=== PATIENT | female | born 1935 | race Caucasian/White ===

== ENCOUNTER → 2017-06-05 | Outpatient (CLI) | payer MEDICARE, BC ==
[~2017-06-05] MED LIST: ASPIRIN 81MG TA81 MG PO; BYSTOLIC20 MG PO; DIAZEPAM5 MG PO; ELITE MAGNESIUM1 TAB PO; LISINOPRIL 5MG T5 MG PO; LORTAB 5/500 501 TAB PO; MOTRIN600 MG PO; MULTIVITAMIN1 TA1 PO; NORVASC 10MG. T10 MG PO; POTASSIUM CHLO10 ME3 PO; POTASSIUM CHLO20 ME2 PO; PREDNISONE50 MG PO; SYNTHROID PO; TOPROL XL 25MG25 MG PO; VITAMIN D3400 I1 PO
[2017-06-05 09:31] LABS: HEMOGLOBIN 14.9 g/dL (12.2-16.2); LYMPH # 1.3 K/mm3 (0.7-4.5); LYMPH % 21.9 % (10-50.0)
[2017-06-05 11:13] LABS: BUN 25 mg/dL (7-18); GFR (ESTIMATED) 40 ML/MIN (59-)
--- NOTE | 2017-06-08 12:55 | RADIOLOGY REPORT PS360 ---
DIG MAMM-SCREEN ALISON W/CAD CAD Screening ORDERING PHYSICIAN : Justin Partida MD PATIENT AGE: 81 years GENDER: Female COMPARISON: Previous mammograms: May 20152015. April 2014. March INDICATION: Routine screening no hormones. No new complaints. Noncontributory family history TECHNIQUE: Standard CC and MLO images were obtained. R2 CAD reviewed. FINDINGS: Low-density breast bilaterally with generalized fatty replacement. No significant new findings. No new areas of concern. RIGHT BREAST: Stable. Follow-up one year LEFT BREAST: Stable small intramammary node deep axillary tail left breast stable since 1999 IMPRESSION: Negative/ Stable bilateral mammogram Low-density breast bilaterally. BI-RADS CATEGORY: 1 RECOMMENDED FOLLOWUP: 12M 12 MONTH FOLLOW-UP (A letter has been sent to the patient regarding results of the study.)
== END ==
LOC: RAD 09:08
PROVIDERS: Family Medicine
DX: Z12.31 Encounter for screening mammogram for malignant neoplasm of breast (principal); I10 Essential (primary) hypertension; E55.9 Vitamin D deficiency, unspecified; E03.9 Hypothyroidism, unspecified; M85.80 Other specified disorders of bone density and structure, unspecified site
CPT/HCPCS: G0202